=== PATIENT | female | born 1955 | race Caucasian/White ===

== ENCOUNTER 2019-02-27 15:03 | Emergency (ER) | payer BC, OTHER ==
--- NOTE | 2019-02-27 15:29 | Emergency Department Record ---
History of Present Illness - General Chief complaint: Head Injury Stated complaint: FELL HIT HEAD/ Time Seen by Provider: 02/27/19 15:13 Source: Patient Mode of Arrival: Ambulatory Limitations: No limitations - History of Present Illness Initial comments: The patient is here due to a possible head injury at home. She was herding horses into the barn when one knocked her to the ground. She did reportedly hit her head on the ground. There was no reported LOC but the patient then possibly was kicked or stepped on by a mini horse. The patient has had no AREVALO since and no nausea, vomiting, or confusion. She may have been slightly amnestic at one time regarding the events relating to the fall and trauma but since does remember the event. The patient does take Plavix and has had a significant head injury with brain bleeding a few years ago but did not need an operation at that time. Complaint: Head injury Onset/Timin -: Hour(s) - Related Data Home Medications Medication Instructions Recorded Confirmed Last Taken Aspirin [Aspir-Low] 81 mg PO DAILY 02/27/19 02/27/19 02/27/19 Clopidogrel Bisulfate [Plavix] 75 mg PO DAILY 02/27/19 02/27/19 02/27/19 Lisinopril 10 mg PO DAILY 02/27/19 02/27/19 02/27/19 Metoprolol Tartrate [Lopressor] 25 mg PO BID 02/27/19 02/27/19 02/27/19 Semaglutide [Ozempic] 0.5 mg SQ WEEKLY 02/27/19 02/27/19 02/20/19 Venlafaxine HCl [Effexor] 75 mg PO DAILY 02/27/19 02/27/19 02/27/19 Allergies/Adverse reactions: Allergies Allergy/AdvReac Type Severity Reaction Status Date / Time oxycodone [OXYCODONE] Allergy Unknown VOMITING Verified 01/17/15 18:17 Review of Systems Constitutional: Denies: Chills, Fever Eyes: Denies: Eye discharge ENT: Denies: Congestion Respiratory: Denies: Dyspnea Past Medical History - SOCIAL HISTORY Smoking Status: Light tobacco smoker (<10/day) - RESPIRATORY Hx Respiratory Disorders: No - CARDIOVASCULAR Hx Cardio Disorders: Yes Hx Abnormal EKG: Yes Hx Cardiac Cath: Yes Hx Heart Attack: Yes Hx Hypertension: Yes - NEURO Hx Neuro Disorders: No - GI Hx GI Disorders: No - Hx Genitourinary Disorders: No - ENDOCRINE Hx Endocrine Disorders: Yes Hx Diabetes: Yes Hx Thyroid Disease: Yes - MUSCULOSKELETAL Hx Musculoskeletal Disorders: No - PSYCH Hx Psych Problems: No - HEMATOLOGY/ONCOLOGY Hx Hematology/Oncology Disorders: No Physical Exam - General General Appearance: Alert, Oriented x3, Cooperative, No acute distress - Head Head exam: Atraumatic, Normocephalic, Normal inspection (There are no signs of any skull injury and no skull tenderness or abrasions.) - Eye Eye exam: Normal appearance, PERRL - ENT ENT exam: TM's normal bilaterally Throat exam: Normal inspection. negative: Tonsillar erythema, Tonsillar exudate - Neck Neck exam: Normal inspection, Full ROM. negative: Tenderness (There is no Cspine tenderness.) - Respiratory Respiratory exam: Normal lung sounds bilaterally. negative: Respiratory distress - Cardiovascular Cardiovascular Exam: Regular rate, Normal rhythm, Normal heart sounds - GI/Abdominal GI/Abdominal exam: Soft, Normal bowel sounds. negative: Tenderness - Extremities Extremities exam: Normal inspection, Full ROM, Normal capillary refill. negative: Tenderness - Neurological Neurological exam: Alert, Normal gait, Oriented X3, Other (Neg Drift and Rho mberg.). negative: Abnormal gait, Altered, Motor sensory deficit Course - Reevaluation(s) Reevaluation #1: The patient is doing well at this time. She did develop a mild AREVALO but that is gone now. She is smiling and up ambulating normally with no problems. I did discuss the need to return for any worsening symptoms. 02/27/19 16:49 Medical Decision Making - Data Complexity MDM Data: X-Ray Ordered and/or Reviewed - Radiology Data Radiology results: Report reviewed (Head CT: Neg per Rad for any acute changes.) Disposition Disposition: Discharge Clinical Impression: Head injury due to trauma Qualifiers: Encounter type: initial encounter Qualified Code(s): S09.90XA - Unspecified injury of head, initial encounter Disposition: Home, Self-Care Condition: (2) Stable Instructions: Head Injury (ED) Additional Instructions: Please take Tylenol for pain and please return to the ER for any worsening symptoms. Forms: Patient Portal Access Time of Disposition: 16:48 Quality - Quality Measures Quality Measures: Blunt Head Trauma (>2yr) - Blunt Head Trauma - Adult Quality Measure: Measure #415: Utilization of CT for Minor Blunt Head Trauma ICD10 Codes Entered: Yes View Details: Yes Was CT ordered: Yes Does Patient Have Any of the Following: Taking Antiplatelet Med [place] Score: Please complete [place]ora Coma Scale above Utilization of CT for Minor Blunt Head Trauma: Patient Excluded [G9531] - Blood Pressure Screening View Details: Yes Does Patient Have Any of the Following: No Blood Pressure Classification: Pre-Hypertensive BP Reading Systolic Measurement: 122 Diastolic Measurement: 74 Screening for High Blood Pressure: < Pre-Hypertensive BP, F/U Documented > [G8950] Pre-Hypertensive Follow-up Interventions: Referral to alternative/primary care provider.
[2019-02-27] MEDS ORDERED: ACETAMINOPHEN 325 MG TAB PO ONE (16:24)
--- NOTE | 2019-03-01 06:00 | CT SCAN REPORT ---
EXAM: CT SCAN HEAD WO CONTRAST HISTORY: TRIPPED BY A HORSE. HIT HEAD. MEMORY LOSS. ON BLOOD THINNERS. TECHNIQUE: Standard CT imaging of the brain was performed without contrast. COMPARISON: July 04, 2013 and November 25, 2012. HAND DOMINANCE: Right. ENCOUNTER: Initial. FINDINGS: The brain volume is normal. The ventricles and subarachnoid spaces are normal. A few minor chronic small vessel ischemic changes are present within the periventricular and subcortical white matter of both cerebral hemispheres. There is no mass, mass effect, intracranial hemorrhage, visible acute infarct, or abnormal extra-axial fluid. The skull is intact. There is an old healed fracture of the medial wall of the right orbit. The orbits, sinuses, and mastoids are otherwise normal. IMPRESSION: NO ACUTE INTRACRANIAL ABNORMALITY OR SKULL FRACTURE. JOB NUMBER: [id number] MTDD
== END 2019-02-27 16:53 | disposition home or self-care (01) ==
LOC: ER 15:03
DX: S09.90XA Unspecified injury of head, initial encounter (principal); R41.3 Other amnesia; R51 Headache; V80.010A Animal-rider injured by fall from or being thrown from horse in noncollision accident, initial encounter; Y92.007 Garden or yard of unspecified non-institutional (private) residence as the place of occurrence of the external cause; Z79.02 Long term (current) use of antithrombotics/antiplatelets; I10 Essential (primary) hypertension; I25.2 Old myocardial infarction; E11.9 Type 2 diabetes mellitus without complications; Z79.4 Long term (current) use of insulin; F17.210 Nicotine dependence, cigarettes, uncomplicated
CPT/HCPCS: 70450; 99284